=== PATIENT | male | born 2000 | race Caucasian/White ===

== ENCOUNTER 2021-01-18 02:10 | Emergency (ER) | payer SELFPAY ==
[~2021-01-18] VITALS: Ht 175.3 cm; Wt 59.0 kg
--- NOTE | 2021-01-18 02:35 | PHYS DOC ---
General Adult EDM: Chief Complaint: OVERDOSE HPI: HPI: Patient is a 20 year old male who is currently on no prescription medications presents for evaluation after an overdose. Patient admits to drinking tonight. He denies any drug abuse. Prior to arrival patient was found unresponsive on his living room floor. Family called 911. Upon EMS arrival patient was unconscious gcs 3. EMS states they had an end-tidal CO2 of 99. Patient was treated with Narcan IM and shortly after patient became responsive with gcs 15. Patient arrived via EMS alert and oriented x4. Patient was observed using his cell phone. Patient denies any drug use. Patient does state he has history of 3 previous drug overdoses. Last overdose was 2 months ago. Review of Systems: Review of Systems: Review of systems: Constitutional symptoms- No fever, no chills. Eyes- No Discharge, No Visual Loss Respiratory symptoms- No shortness of breath, No wheezing, No Dyspnea on Exertion Cardiovascular Systems; No chest pain, No Palpitations, No syncope Gastrointestinal symptoms: NO abdominal pain, no nausea, no vomiting or diarrhea. Genitourinary symptoms: No dysuria. Musculoskeletal symptoms: No back pain No extremity pain. NEUROLOGICAL Symptoms: No headache, no generalized weakness; No focal Weakness Heart Score: C/O Chest Pain: No Risk Factors: Risk Factors: DM, Current or recent (<one month) smoker, HTN, HLP, family history of CAD, obesity. Risk Scores: Score 0 - 3: 2.5% MACE over next 6 weeks - Discharge Home Score 4 - 6: 20.3% MACE over next 6 weeks - Admit for Clinical Observation Score 7 - 10: 72.7% MACE over next 6 weeks - Early Invasive Strategies Physical Exam: PE: General: alert, no acute distress. Skin: warm, dry and intact. Head:: Normocephalic, atraumatic. Neck: Trachea midline. Eyes: EOMI, Normal conjunctiva, No drainage CARDIOVASCULAR: Regular rate and rhythm RESPIRATORY: No respiratory distress Back: Full range of motion. MUSCULOSKELETAL: Full range of motion of bilateral upper and lower extremities. GASTROINTESTINAL: Abdomen soft without rebound or guarding. NEUROLOGICAL: Alert and noted to person, place and time. No neurological deficits observed Psychiatric: Cooperative. Normal judgment EKG: EKG: [] Radiology/Procedures: Radiology/Procedures: [] Course & Med Decision Making: Course & Med Decision Making Pertinent Labs and Imaging studies reviewed. (See chart for details) [] Patient was observed for over 1 hour. No complications patient continued to be alert and oriented x4. He was discharged home. Vincent Disclaimer: Vincent Disclaimer: This electronic medical record was generated, in whole or in part, using a voice recognition dictation system. Departure Departure Impression: Primary Impression: Overdose Additional Impression: Alcohol intoxication Disposition: 01 DC HOME SELF CARE/HOMELESS Condition: STABLE Patient Instructions: Overdose, Adult NONA POSADA I DO Jan 18, 2021 02:35
[2021-01-18] MEDS ORDERED: IV NORMAL SALINE 1000ML BAG 1,000 ML IV ONE (03:15)
[2021-01-18 04:35] LABS: BILIRUBIN,URINE NEGATIVE (NEG); CLARITY,URINE CLEAR; COLOR,URINE YELLOW; NITRITE,URINE NEGATIVE (NEG); PH,URINE 5.5 (<5.0-8.0); PROTEIN,URINE >=300 mg/dL (NEG-TRACE); UROBILINOGEN,URINE 0.2 mg/dL (0.2 mg/dL)
[2021-01-18 04:41] LABS: BARBITURATES NEG (NEG); BENZODIAZEPINES NEG (NEG); CANNABINOIDS POS (NEG); COCAINE NEG (NEG); METHADONE NEG (NEG); OPIATES NEG (NEG); PHENCYCLIDINE NEG (NEG)
[2021-01-18 04:42] LABS: AMPHETAMINE/METHAMPHETAMINE NEG (NEG)
[2021-01-18 04:45] LABS: BACTERIA,URINE 0 /HPF (0-FEW); RBC,URINE OCC /HPF (0-2)
[2021-01-18 04:46] LABS: AMORPHOUS SEDIMENT,UR PRESENT /HPF; GRANULAR CASTS,URINE FEW /HPF; HYALINE CASTS, URINE FEW /HPF
[2021-01-18 06:45] VITALS: BP 104/56
== END 2021-01-18 07:05 | disposition home or self-care (01) ==
LOC: ER 02:10
DX: T50.7X1A Poisoning by analeptics and opioid receptor antagonists, accidental (unintentional), initial encounter (principal); F10.229 Alcohol dependence with intoxication, unspecified; Y92.89 Other specified places as the place of occurrence of the external cause
CPT/HCPCS: 36415; 80307; 81001; 96360; 99285; G0480; J7030

== ENCOUNTER 2021-02-11 11:23 | Emergency (ER) | payer SELFPAY ==
[~2021-02-11] VITALS: Ht 170.2 cm; Wt 61.3 kg
--- NOTE | 2021-02-11 12:10 | PHYS DOC ---
Past Medical History Past Medical History: No Pertinent History Past Surgical History: No Surgical History Smoking Status: Current Every Day Smoker Alcohol Use: Sober General Adult EDM: Chief Complaint: DRUG SCREEN HPI: HPI: Patient is a 20 year old male who presents with states feet he has been buying Percocet off the street and taking 3 to 4 days with about the last year. He states that he has not taken any for the last 4 days and is having nausea, pal pitations, anxiety and slightly achiness. He does a smoker every day and denies any other drug use. He states he does use alcohol recreationally. He states he had a brief moment of suicidal ideation yesterday but denies being suicidal as he states he has to live for his child. Currently rates his discomfort at a 7 out of 10. Patient denies SI at this time, HI, vomiting, headache, dizziness, syncope, chest pain, shortness of air, fever, back pain, vision changes, numbness or tingling. Review of Systems: Review of Systems: Constitutional: Denies fever or chills. [] Eyes: Denies change in visual acuity. [] HENT: Denies nasal congestion or sore throat. [] Respiratory: Denies cough or shortness of breath. [] Cardiovascular: Denies chest pain or edema. + Palpitations [] GI: Denies abdominal pain. + nausea, denies vomiting, bloody stools or diarrhea. [] : Denies dysuria. [] Musculoskeletal: Denies back pain or joint pain. [] Integument: Denies rash. [] Neurologic: Denies headache, focal weakness or sensory changes. [] Endocrine: Denies polyuria or polydipsia. [] Lymphatic: Denies swollen glands. [] Psychiatric: Denies depression. + anxiety. + Brief thought of suicidal ideation. [] Heart Score: C/O Chest Pain: N/A HEART Score for Chest Pain: HEART Score for Chest Pain Response (Comments) Value History Slighlty/Non-Suspicious 0 ECG Normal 0 Age < 45 0 Risk Factors 1 or 2 Risk Factors 1 Troponin < Normal Limit 0 Total 1 Risk Factors: Risk Factors: DM, Current or recent (<one month) smoker, HTN, HLP, family history of CAD, obesity. Risk Scores: Score 0 - 3: 2.5% MACE over next 6 weeks - Discharge Home Score 4 - 6: 20.3% MACE over next 6 weeks - Admit for Clinical Observation Score 7 - 10: 72.7% MACE over next 6 weeks - Early Invasive Strategies Current Medications: Current Medications Medications (Trade) Dose Ordered Sig/Asif Start Time Stop Time Status Last Admin Dose Admin Lorazepam (Ativan Inj) 0.25 mg 1X ONCE 02/11/21 12:00 02/11/21 12:01 UNV Ondansetron HCl (Zofran) 4 mg 1X ONCE 02/11/21 12:00 02/11/21 12:01 UNV Sodium Chloride 1,000 ml @ 1,000 mls/hr 1X ONCE 02/11/21 12:00 02/11/21 12:59 UNV Allergies: Allergies: Allergies Coded Allergies Type Severity Reaction Last Updated Verified No Known Drug Allergies 01/18/21 No Physical Exam: PE: Constitutional: Well developed, well nourished, no acute distress, non-toxic appearance. [] HENT: Normocephalic, atraumatic, bilateral external ears normal, oropharynx moist, no oral exudates, nose normal. [] Eyes: PERRLA, EOMI, conjunctiva normal, no discharge. [] Neck: Normal range of motion, no tenderness, supple, no stridor. [] Cardiovascular:Heart rate regular rhythm, no murmur [] Lungs & Thorax: Bilateral breath sounds clear to auscultation [] Abdomen: Bowel sounds normal, soft, no tenderness, no masses, no pulsatile masses. [] Skin: Warm, dry, no erythema, no rash. [] Back: No tenderness, no CVA tenderness. [] Extremities: No tenderness, no cyanosis, no clubbing, ROM intact, no edema. [] Neurologic: Alert and oriented X 3, normal motor function, normal sensory function, no focal deficits noted. [] Psychologic: Affect normal, judgement normal, mood normal. Anxious [] EKG: EK and read by Dr. Boyer is sinus rhythm and no STEMI Radiology/Procedures: Radiology/Procedures: [] Course & Med Decision Making: Course & Med Decision Making Pertinent Labs and Imaging studies reviewed. (See chart for details) See HPI. Alert and oriented x4. Ambulatory with a steady gait. Patient is very anxious and shaking his legs in the room. Speaks in full clear sentences. Skin pink warm and dry. Lungs are clear to auscultation all lobes. I have spoken to Teri with [facility] team and she is going to come in and see the patient. Patient's mother is at bedside. Patient is calm and cooperative at this time. 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 Patient and patient's mother understand all instructions and education. Blood work unremarkable except for elevated liver function. Urinalysis was positive for marijuana. Negative Mcbee sign. I have spoken to Dr Boyer concerning the liver enzyme finding but she states that no further work up or imaging is needed. Patient is stable and will be discharged home with hydroxyzine and zofran. \ Patient states he is feeling much better. He states that him and his mom have been talking and they have a plan together and he is going to get started on finding help with his resources he got today. Patient and mother agree that patient is well enough to go home. Patient is stable and in no distress. [] Dragon Disclaimer: Dragon Disclaimer: This electronic medical record was generated, in whole or in part, using a voice recognition dictation system. Departure Departure Impression: Primary Impression: Drug withdrawal Qualified Codes: F11.23 - Opioid dependence with withdrawal Disposition: 01 DC HOME SELF CARE/HOMELESS Condition: STABLE Referrals: NO PCP (PCP) Patient Instructions: Alcohol and Drug Addiction, Finding Treatment, Drug Abuse and Addiction-SportsMed, Drug Abuse, FAQs Additional Instructions: Follow-up with a primary care provider concerning your liver enzymes. Do not drink any alcohol, take anything with Tylenol in it including Percocet or hydrocodone because they both have Tylenol in them. All these things can further injure your liver. Drink plenty of fluids. Rest. Follow-up with the resources you have been given today. If anything worsens you can always return to the emergency room. Take medication as prescribed. Scripts Ondansetron (ONDANSETRON ODT) 4 Mg Tab.rapdis 1 TAB PO PRN Q6-8HRS, #30 TAB Prov: BINTA NO APRN 02/11/21 Hydroxyzine Hcl (HYDROXYZINE HCL) 25 Mg Tablet 1 TAB PO TID, #90 TAB 2 Refills Prov: BINTA NO APRN 02/11/21 BINTA NO APRN Feb 11, 2021 12:10
[2021-02-11] MEDS ORDERED: IV NORMAL SALINE 1000ML BAG 1,000 ML IV ONE (12:30)
[2021-02-11] MEDS ORDERED: ONDANSETRON PF 4 MG/2 ML VIAL. IVP ONE (12:30)
[2021-02-11 12:37] LABS: BASO # 0.1 x10^3/uL (0.0-0.2); BASO % 1 % (0-3); EOS % 0 % (0-3); LYMPH # 6.9 x10^3/uL (1.0-4.8); LYMPH % 52 % (24-48); MEAN CORPUSCULAR HEMOGLOBIN 29 pg (25-35); MEAN CORPUSCULAR HGB CONC 34 g/dL (31-37); MEAN CORPUSCULAR VOLUME 85 fL (79-100); MONO % 8 % (0-9); NEUT # 5.3 x10^3/uL (1.8-7.7); NEUT % 40 % (31-73); PLATELET COUNT 316 x10^3/uL (140-400); RED CELL DISTRIBUTION WIDTH 13.4 % (11.5-14.5); WHITE BLOOD COUNT 13.3 x10^3/uL (4.0-11.0)
[2021-02-11 12:54] LABS: BILIRUBIN,URINE NEGATIVE (NEG); CLARITY,URINE CLEAR; COLOR,URINE YELLOW; NITRITE,URINE NEGATIVE (NEG); PROTEIN,URINE NEGATIVE (NEG-TRACE); UROBILINOGEN,URINE 0.2 mg/dL (0.2 mg/dL)
[2021-02-11 13:08] LABS: BACTERIA,URINE 0 /HPF (0-FEW); BARBITURATES NEG (NEG); BENZODIAZEPINES NEG (NEG); CANNABINOIDS POS (NEG); COCAINE NEG (NEG); METHADONE NEG (NEG); OPIATES NEG (NEG); PHENCYCLIDINE NEG (NEG); RBC,URINE 0 /HPF (0-2); WBC,URINE 0 /HPF (0-4)
[2021-02-11 13:09] LABS: AMPHETAMINE/METHAMPHETAMINE NEG (NEG)
[2021-02-11 14:28] LABS: CALCIUM 7.9 mg/dL (8.5-10.1); CREATININE 0.7 mg/dL (0.7-1.3); GFR 143.8; POTASSIUM 3.7 mmol/L (3.5-5.1)
[2021-02-11 14:35] LABS: ALBUMIN 3.4 g/dL (3.4-5.0); ALBUMIN/GLOBULIN RATIO 1.1 (1.0-1.7); TOTAL BILIRUBIN 0.5 mg/dL (0.2-1.0); TOTAL PROTEIN 6.4 g/dL (6.4-8.2)
[2021-02-11 14:36] LABS: ACETAMIN < 2 mcg/ml (10-30); ETHANOL < 10 mg/dL (0-10); SALIC 2.8 mg/dL (2.8-20.0)
[2021-02-11 15:37] VITALS: BP 119/69
[2021-02-11] MEDS ORDERED: HYDR25TA PO (15:49)
[2021-02-11] MEDS ORDERED: ONDA4TAB12 PO (15:49)
[2021-02-11 15:56] LABS: % ATYL 27 % (0-0); % BANDS 3 % (0-9); % EOS 1 % (0-5); % LYMPHS 6 % (24-48); % MONOS 3 % (0-10); % SEGS 60 % (35-66)
[2021-02-11 16:02] LABS: PLT ESTIMATE ADEQUATE (ADEQUATE)
[2021-02-11 16:03] LABS: POIKILOCYTOSIS SLIGHT; POLYCHROMASIA SLIGHT
[2021-02-11 16:06] LABS: TEAR DROP CELLS OCC
--- NOTE | 2021-02-12 07:30 | EKG ---
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
--- NOTE | 2021-02-14 09:35 | NUR ---
IP: Attempted to contact pt concerning COVID results. Female stated should would give him the message to return my call.
--- NOTE | 2021-02-14 13:53 | NUR ---
IP: Pt returned my call. I informed him of the negative COVID test. Pt verbalized understanding.
== END 2021-02-11 16:07 | disposition home or self-care (01) ==
LOC: ER 11:23
DX: F11.23 Opioid dependence with withdrawal (principal); Z20.822 Contact with and (suspected) exposure to COVID-19; R00.2 Palpitations; R45.851 Suicidal ideations; R41.9 Unspecified symptoms and signs involving cognitive functions and awareness; F17.200 Nicotine dependence, unspecified, uncomplicated
CPT/HCPCS: 36415; 80053; 80307; 80329; 81001; 83690; 84484; 85007; 85025; 93005; 96361; 96374; 96375; 99285; C9803; G0480; J2060; J2405; J7030; U0003; U0005

== ENCOUNTER 2021-02-15 01:17 | Emergency (ER) | payer SELFPAY ==
[~2021-02-15] VITALS: Ht 170.2 cm; Wt 65.0 kg
[~2021-02-15 01:17] MED LIST: HYDR25TA PO; ONDA4TAB12 PO
--- NOTE | 2021-02-15 01:54 | EKG ---
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
[2021-02-15] MEDS: cloNIDine HCL 0.1 MG TABLET PO ONE (02:00)
[2021-02-15 02:01] VITALS: BP 118/57
--- NOTE | 2021-02-15 04:06 | PHYS DOC ---
Past Medical History Past Medical History: No Pertinent History Past Surgical History: No Surgical History Smoking Status: Current Every Day Smoker Alcohol Use: Occasionally Adult General Chief Complaint Chief Complaint: CHEST PAIN HPI HPI Patient is a 20 year old male presenting the emergency department concern for opiate withdrawal. Patient states he has been on counterfeit narcotics with Percocet for the last year. Patient states he attempted to quit a week ago and since that time has been having worsening withdrawal symptoms which include sensation of anxiety, generalized pain, agitation and sweating. Patient denies any alcohol or other drug use. Currently denies any fever, chills, nausea, vomiting, chest pain or shortness of breath. Review of Systems Review of Systems Constitutional: Denies fever or chills [] Eyes: Denies change in visual acuity, redness, or eye pain [] HENT: Denies nasal congestion or sore throat [] Respiratory: Denies cough or shortness of breath [] Cardiovascular: No additional information not addressed in HPI [] GI: Denies abdominal pain, nausea, vomiting, bloody stools or diarrhea [] : Denies dysuria or hematuria [] Musculoskeletal: Denies back pain or joint pain [] Integument: Denies rash or skin lesions [] Neurologic: Denies headache, focal weakness or sensory changes [] Endocrine: Denies polyuria or polydipsia [] All other systems were reviewed and found to be within normal limits, except as documented in this note. Current Medications Current Medications Current Medications Medications (Trade) Dose Ordered Sig/Asif Start Time Stop Time Status Last Admin Dose Admin Clonidine HCl (Catapres) 0.1 mg 1X ONCE 02/15/21 01:45 02/15/21 01:46 DC 02/15/21 02:00 0.1 MG Allergies Allergies Allergies Coded Allergies Type Severity Reaction Last Updated Verified No Known Drug Allergies 01/18/21 No Physical Exam Physical Exam Constitutional: Well developed, well nourished, no acute distress, non-toxic appearance. [] HENT: Normocephalic, atraumatic, bilateral external ears normal, oropharynx moist, no oral exudates, nose normal. [] Eyes: PERRLA, EOMI, conjunctiva normal, no discharge. [] Neck: Normal range of motion, no tenderness, supple, no stridor. [] Cardiovascular:Heart rate regular rhythm, no murmur [] Lungs & Thorax: Bilateral breath sounds clear to auscultation [] Abdomen: Bowel sounds normal, soft, no tenderness, no masses, no pulsatile masses. [] Skin: Warm, dry, no erythema, no rash. [] Back: No tenderness, no CVA tenderness. [] Extremities: No tenderness, no cyanosis, no clubbing, ROM intact, no edema. [] Neurologic: Alert and oriented X 3, normal motor function, normal sensory function, no focal deficits noted. [] Psychologic: Affect normal, judgement normal, mood normal. [] Current Patient Data Vital Signs Vital Signs Date Time Temp Pulse Resp B/P (MAP) Pulse Ox O2 Delivery O2 Flow Rate FiO2 02/15/21 02:00 88 129/68 02/15/21 01:35 98.1 24 99 98.1 EKG EKG [] Radiology/Procedures Radiology/Procedures [] Course & Med Decision Making Course & Med Decision Making Pertinent Labs and Imaging studies reviewed. (See chart for details) 20-year-old male presenting the emergency department for opiate withdrawal. Patient is requesting assistance with detox. Will attempt to treat the patient symptomatically and will obtain a PET team evaluation. Patient this time does not want inpatient rehab but is willing to accept outpatient rehab facilities. At this time will discharge patient home and drug assistance programs plan to call the patient early this morning. Dragon Disclaimer Dragon Disclaimer This electronic medical record was generated, in whole or in part, using a voice recognition dictation system. Departure Departure Impression: Primary Impression: Drug withdrawal Disposition: HOME / SELF CARE / HOMELESS Condition: STABLE Referrals: MARLEE DANIELS MD Patient Instructions: Narcotic Withdrawal Additional Instructions: EMERGENCY DEPARTMENT GENERAL DISCHARGE INSTRUCTIONS Thank you for coming to [facility] Emergency Department (ED) today and trusting us with you care. We trust that you had a positive experience in our Emergency Department. If you wish to speak to the department management, you may call the Director at [phone]. YOUR FOLLOW UP INSTRUCTIONS ARE FOLLOWS: 1. Do you have a private Doctor? If you do not have a private doctor, please ask for a resource list of physicians or clinics that may be able to assist you with follow up care. 2. The Emergency Physicain has interpreted your x-rays. The X-Ray specialist will also review them. If there is a change in the findings, you will be notified in 48 hours when at all possible. 3. A lab test or culture has been done, your results will be reviewed and you will be notified if you need a change in treatment. ADDITIONAL INSTRUCTIONS AND INFORMATION: 1. Your care today has been supervised by a physician who is specially trained in emergency care. Many problems require more than one evaluation for a complete diagnosis and treatment. We recommend that you schedule your follow up appointment as recommended to ensure complete treatment of you illness or injury. If you are unable to obtain follow up care and continue to have a problem, or if your condition worsens, we recommend that you return to the ED. 2. We are not able to safely determine your condition over the phone nor are we able to give sound medical advice over the phone. For these safety reasons, if you call for medical advice we will ask you to come to the ED for further evaluation. 3. If you have any questions regarding these discharge instructions please call the ED at [phone]. SAFETY INFORMATION: In the interest of safety, wellness, and injury prevention; we encourage you to wear your sealbelt, if you smoke; quite smoking, and we encourage family to use a protective helmet for bicycling and other sporting events that present an increased risk for head injury. IF YOUR SYMPTOMS WORSEN OR NEW SYMPTOMS DEVELOP, OR YOU HAVE CONCERNS ABOUT YOUR CONDITION; OR IF YOUR CONDITION WORSENS WHILE YOU ARE WAITING FOR YOUR FOLLOW UP APPOINTMENT; EITHER CONTACT YOUR PRIMARY CARE DOCTOR, THE PHYSICIAN WHOSE NAME AND NUMBER YOU WERE GIVEN, OR RETURN TO THE ED IMMEDIATELY. MARCELA SCOTT MD Feb 15, 2021 04:06
== END 2021-02-15 04:10 | disposition home or self-care (01) ==
LOC: ER 01:17
DX: F19.239 Other psychoactive substance dependence with withdrawal, unspecified (principal); R20.2 Paresthesia of skin; F17.200 Nicotine dependence, unspecified, uncomplicated
CPT/HCPCS: 93005; 99283

== ENCOUNTER 2021-11-20 22:23 | Emergency (ER) | payer SELFPAY ==
[~2021-11-20] VITALS: Ht 165.1 cm; Wt 61.3 kg
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
[2021-11-20 22:59] LABS: BASO # 0.1 x10^3/uL (0.0-0.2); BASO % 1 % (0-3); EOS # 0.2 x10^3/uL (0.0-0.7); EOS % 1 % (0-3); HEMATOCRIT 41.5 % (39.0-53.0); HEMOGLOBIN 13.5 g/dL (13.0-17.5); LYMPH # 3.9 x10^3/uL (1.0-4.8); LYMPH % 29 % (24-48); MEAN CORPUSCULAR HEMOGLOBIN 28 pg (25-35); MEAN CORPUSCULAR HGB CONC 33 g/dL (31-37); MEAN CORPUSCULAR VOLUME 87 fL (79-100); MONO # 0.9 x10^3/uL (0.0-1.1); MONO % 7 % (0-9); NEUT # 8.4 x10^3/uL (1.8-7.7); NEUT % 63 % (31-73); PLATELET COUNT 331 x10^3/uL (140-400); RED BLOOD COUNT 4.75 x10^6/uL (4.30-5.70); RED CELL DISTRIBUTION WIDTH 13.4 % (11.5-14.5); WHITE BLOOD COUNT 13.5 x10^3/uL (4.0-11.0)
[2021-11-20] MEDS ORDERED: IV NORMAL SALINE 1000ML BAG 1,000 ML IV ONE (23:00)
[2021-11-20 23:10] LABS: BILIRUBIN,URINE NEGATIVE (NEG); CLARITY,URINE CLEAR; COLOR,URINE YELLOW; NITRITE,URINE NEGATIVE (NEG); PH,URINE 7.5 (<5.0-8.0); PROTEIN,URINE NEGATIVE (NEG-TRACE); UROBILINOGEN,URINE 0.2 mg/dL (0.2 mg/dL)
[2021-11-20 23:14] LABS: CALCIUM 8.5 mg/dL (8.5-10.1); CREATININE 0.7 mg/dL (0.7-1.3); ETHANOL 260 mg/dL (0-10); GFR 143.8; POTASSIUM 3.5 mmol/L (3.5-5.1); SALIC 2.6 mg/dL (2.8-20.0)
[2021-11-20 23:15] LABS: ACETAMIN < 2 mcg/ml (10-30)
[2021-11-20 23:18] LABS: BACTERIA,URINE 0 /HPF (0-FEW); RBC,URINE 0 /HPF (0-2); WBC,URINE 0 /HPF (0-4)
[2021-11-20 23:18] LABS: ALBUMIN 3.8 g/dL (3.4-5.0); ALBUMIN/GLOBULIN RATIO 1.1 (1.0-1.7); MAGNESIUM 2.3 mg/dL (1.8-2.4); TOTAL BILIRUBIN 0.1 mg/dL (0.2-1.0); TOTAL PROTEIN 7.2 g/dL (6.4-8.2)
[2021-11-20 23:19] LABS: AMPHETAMINE/METHAMPHETAMINE NEG (NEG); BARBITURATES NEG (NEG); BENZODIAZEPINES NEG (NEG); CANNABINOIDS NEG (NEG); COCAINE NEG (NEG); METHADONE NEG (NEG); OPIATES NEG (NEG); PHENCYCLIDINE NEG (NEG)
[2021-11-21] MEDS ORDERED: ONDA4TAB12 PO (09:31)
[2021-11-21 12:00] VITALS: BP 114/65
== END 2021-11-21 12:28 ==
LOC: ER 22:23
DX: F10.129 Alcohol abuse with intoxication, unspecified (principal); Y90.8 Blood alcohol level of 240 mg/100 ml or more; F19.10 Other psychoactive substance abuse, uncomplicated
CPT/HCPCS: 36415; 80053; 80307; 80329; 81001; 83735; 85025; 96361; 96374; 96376; 99285; G0480; J2060; J7030

== ENCOUNTER 2021-11-22 15:02 | Emergency (ER) | payer SELFPAY ==
[~2021-11-22] VITALS: Ht 160 cm; Wt 55.1 kg
[2021-11-22 15:10] VITALS: BP 134/76
--- NOTE | 2021-11-22 15:21 | PHYS DOC ---
Past Medical History Past Medical History: No Pertinent History Past Surgical History: No Surgical History Smoking Status: Current Every Day Smoker Alcohol Use: Occasionally Adult General Chief Complaint Chief Complaint: WITHDRAWL HPI HPI The patient is a 20-year-old male with a history of polysubstance abuse. He was seen here yesterday after being found intoxicated and was eventually sent to [facility] for substance abuse treatment. Today he verbalized to substance abuse treatment facility staff that he felt he was going to have a withdrawal seizure and he was transported back to this facility via EMS. Patient did not have a seizure. On arrival to the emergency department he is alert, oriented x4, pleasantly and appropriately interactive and in absolutely no acute distress with completely appropriate vital signs. He is not tremulous, not altered, and clinically demonstrates no evidence of acute withdrawal of any kind. Labs reviewed from yesterday and were within normal limits aside from evidence of polysubstance abuse. Counseled patient that at this time there is no evidence of an emergency medical condition, and in particular that there is no evidence that he is acutely medically withdrawing from any substance. I offered to facilitate a return to the substance abuse treatment facility but patient adamantly declines that, stating that he would prefer to simply go home. While I feel that he will likely return to substance use if he leaves the department and is left to his own devices, he is an adult, is alert and oriented, not intoxicated, not suicidal and in my opinion has capacity to refuse substance abuse treatment if he so chooses. He understands that if he changes his mind and wants help with detox or has any other new symptoms of concern that he should return to the emergency room right away and we will be happy to help him. Review of Systems Review of Systems A 12 point review of systems was completed and was negative except where noted in HPI above. Allergies Allergies Allergies Coded Allergies Type Severity Reaction Last Updated Verified No Known Drug Allergies 01/18/21 No Physical Exam Physical Exam 20-year-old male appearing nontoxic and in no acute distress. Head is normocephalic and atraumatic. Neck is supple and nontender. Oropharynx is moist. Lungs are clear to auscultation at all stations. There is normal S1 and S2 without rubs or gallops and capillary refill is appropriate, less than 2 seconds globally. Abdomen is soft, nontender nondistended. Skin is warm and dry without cyanosis, clubbing or edema. Psychiatrically, the patient demonstrates appropriate mood and affect and is alert. Evaluation of the extremities reveals BUEs and BLEs neurovascularly intact distally with strength 5 out of 5, sensation tact light touch in all nerve distributions, radial, DP and PT pulses 2+ and equal bilaterally, capillary refill less than 2 seconds, hands and feet warm and well-perfused. EKG EKG [] Radiology/Procedures Radiology/Procedures [] Dragon Disclaimer Dragon Disclaimer This electronic medical record was generated, in whole or in part, using a voice recognition dictation system. Departure Departure Impression: Primary Impression: Feared complaint without diagnosis Additional Impression: Encounter for medical screening examination Disposition: HOME / SELF CARE / HOMELESS Condition: STABLE Patient Instructions: Substance Abuse-Brief Additional Instructions: Follow-up very closely with your primary care doctor in the office in the next 1 to 2 days for a reevaluation of your symptoms and a discussion of next best steps in care. Drink plenty of fluids and get plenty of rest. As we discussed, you have declined to be returned to the substance abuse treatment facility for further care but if you change your mind you may return at any time and we would be more than happy to help you. Return to the emergency department right away for worsening symptoms of any kind or with any other new symptoms of concern Problem Qualifiers KENYATTA DRUMMOND MD Nov 22, 2021 15:21
== END 2021-11-22 15:40 | disposition home or self-care (01) ==
LOC: ER 15:02
DX: Z71.1 Person with feared health complaint in whom no diagnosis is made (principal); F17.200 Nicotine dependence, unspecified, uncomplicated
CPT/HCPCS: 99283

== ENCOUNTER 2021-11-26 18:50 | Emergency (ER) | payer SELFPAY ==
[2021-11-26 18:55] VITALS: BP 136/81
--- NOTE | 2021-11-26 19:02 | PHYS DOC ---
Past Medical History Past Medical History: No Pertinent History Past Surgical History: No Surgical History Smoking Status: Current Every Day Smoker Alcohol Use: Heavy General Adult EDM: Chief Complaint: ALCOHOL INTOXICATION HPI: HPI: Patient is a 20 year old male with a past medical history of substance abuse presents via EMS for evaluation due to to concern of an overdose. Patient currently living with his parents. Parents attempted to wake patient up and had difficulty. They called 911 upon EMS arrival patient was treated with Narcan. Shortly after awakening woke up. Patient was denying any opiate use. He is requesting discharge from the ER. On exam patient is alert and oriented x4. He is requesting to be discharged from the ER. Advised like to observe since he was just treated with Narcan. He denies any narcotic or substance use. Patient declining observation states he did not take any opiates and he sees no need for observation. He moves all extremities passively and actively. He ambulates with a steady gait. Patient arrived via EMS--- He was awake and alert on arrival. He is in no acute distress. Review of Systems: Review of Systems: Constitutional: Denies fever or chills. [] Eyes: Denies change in visual acuity. [] HENT: Denies nasal congestion or sore throat. [] Respiratory: Denies cough or shortness of breath. [] Cardiovascular: Denies chest pain or edema. [] GI: Denies abdominal pain, nausea, vomiting, bloody stools or diarrhea. [] : Denies dysuria. [] Musculoskeletal: Denies back pain or joint pain. [] Integument: Denies rash. [] Neurologic: Denies headache, focal weakness or sensory changes. [] Endocrine: Denies polyuria or polydipsia. [] Lymphatic: Denies swollen glands. [] Psychiatric: Denies depression or anxiety. [] Heart Score: C/O Chest Pain: N/A Risk Factors: Risk Factors: DM, Current or recent (<one month) smoker, HTN, HLP, family history of CAD, obesity. Risk Scores: Score 0 - 3: 2.5% MACE over next 6 weeks - Discharge Home Score 4 - 6: 20.3% MACE over next 6 weeks - Admit for Clinical Observation Score 7 - 10: 72.7% MACE over next 6 weeks - Early Invasive Strategies Allergies: Allergies: Allergies Coded Allergies Type Severity Reaction Last Updated Verified No Known Drug Allergies 01/18/21 No Physical Exam: PE: Constitutional: Well developed, well nourished, no acute distress, non-toxic appearance. [] HENT: Normocephalic, atraumatic, bilateral external ears normal, oropharynx moist, no oral exudates, nose normal. [] Eyes: PERRLA, EOMI, conjunctiva normal, no discharge. [] Neck: Normal range of motion, no tenderness, supple, no stridor. [] Cardiovascular:Heart rate regular rhythm, no murmur [] Lungs & Thorax: Bilateral breath sounds clear to auscultation [] Abdomen: Bowel sounds normal, soft, no tenderness, no masses, no pulsatile masses. [] Skin: Warm, dry, no erythema, no rash. [] Back: No tenderness, no CVA tenderness. [] Extremities: No tenderness, no cyanosis, no clubbing, ROM intact, no edema. [] Neurologic: Alert and oriented X 3, normal motor function, normal sensory function, no focal deficits noted. [] Psychologic: Affect normal, judgement normal, mood normal. [] EKG: EKG: [] Radiology/Procedures: Radiology/Procedures: [] Course & Med Decision Making: Course & Med Decision Making Pertinent Labs and Imaging studies reviewed. (See chart for details) [] Patient of sound mind. Alert and oriented x4. Patient was discharged home after a brief exam. Patient ambulated out of the ER with a normal steady gait. Dragon Disclaimer: Vincent Disclaimer: This electronic medical record was generated, in whole or in part, using a voice recognition dictation system. Departure Departure Impression: Primary Impression: Encounter for medical screening examination Additional Impression: Substance abuse Disposition: HOME / SELF CARE / HOMELESS Condition: STABLE Referrals: NO PCP (PCP) Patient Instructions: Overdose, Accidental SWETHANONA DECKER I DO Nov 26, 2021 19:02
== END 2021-11-26 18:59 | disposition home or self-care (01) ==
LOC: ER 18:50
DX: F10.229 Alcohol dependence with intoxication, unspecified (principal); Y90.9 Presence of alcohol in blood, level not specified; F17.200 Nicotine dependence, unspecified, uncomplicated
CPT/HCPCS: 99283